=== PATIENT | male | born 1985 | race Caucasian/White ===

== ENCOUNTER 2019-10-23 10:53 | Emergency (ER) | payer OTHER, SELFPAY ==
[2019-10-23] VITALS (19 sets, daily range): BP systolic 97–126; BP diastolic 64–76; PULSE 60–85; RESP 6–20; TEMP 36.6; O2SAT 95–100
--- NOTE | ~2019-10-23 | XR_ITS ---
EXAMINATION: XR chest 2V EXAM DATE: 10/23/2019 11:32 INDICATION: Sharp chest pain during respiration. TECHNIQUE: Frontal and lateral projections of the chest obtained and reviewed. There is no prior lexx dy for comparison. FINDINGS: The lungs are clear. There are no pleural effusions. The cardiomediastinal silhouette is within normal limits. There is no pneumothorax suspected. The bones and soft tissues are unremarkab le. IMPRESSION: No acute cardiopulmonary findings. Reviewed, dictated and finalized at location B.
--- NOTE | 2019-10-23 11:03 | ECG_ITS ---
Measurements Intervals [place] Rate: 64 P: 76 SC: 129 QRS: 77 QRSD: 90 T: 66 QT: 382 QTc: 397 Interpretive Statements SINUS RHYTHM WITH SINUS ARRHYTHMIA BORDERLINE ECG Electronically Signed On 10-23-2019 11:55:51 CDT by Serjio Emerson D.O.
[2019-10-23 11:15] LABS: Basophils Absolute Auto 0.1 K/mm3 (0.0-0.1); Basophils Percent Auto 0.7 % (0.2-1.2); Eosinophils Absolute Auto 0.1 K/mm3 (0-0.3); Eosinophils Percent Auto 1.8 % (0-4.4); Hematocrit 36.7 % (42.0-52.0); Hemoglobin 12.9 g/dL (14.0-18.0); Immature Granulocyte Absolute 0.01 K/mm3 (0.00-0.031); Immature Granulocyte Percent A 0.1 % (0-0.5); Lymphocytes Absolute Auto 1.63 K/mm3 (0.9-3.2); Mean Corpuscular HGB Conc 35.1 g/dl (32-36); Mean Corpuscular Hemoglobin 30.1 pg (26-34); Mean Corpuscular Volume 85.5 fl (80-100); Mean Platelet Volume 9.3 fl (7.4-10.4); Monocytes Absolute Auto 0.6 K/mm3 (0.1-0.6); Monocytes Percent Auto 8.8 % (2.6-8.5); Neutrophils Absolute Auto 4.4 K/mm3 (1.3-6.7); Neutrophils Percent Auto 64.6 % (45.5-73.1); Platelet Count Result 182 k/mm3 (150-375); Red Blood Count 4.29 M/mm3 (4.6-6.20); White Blood Count 6.8 K/mm3 (4.5-10.0)
[2019-10-23 11:25] LABS: Prothrombin Time 12.4 Seconds (11.1-14.7)
[2019-10-23 11:27] LABS: Blood Urea Nitrogen 8 mg/dL (9-20); Calcium 9.2 mg/dL (8.4-10.2); Carbon Dioxide 25 mmol/L (22-30); Chloride 100 mmol/L (98-107); Estimated CRCL calculation 108 ml/min; Estimated Glomerular Filt Rate > 60; Glucose 106 mg/dL (75-110); Potassium 3.9 mmol/L (3.4-5.0); Sodium 135 mmol/L (137-145)
[2019-10-23 11:39] LABS: Troponin I < 0.012 ng/mL (0.000-0.034)
[2019-10-23 11:44] LABS: Erythrocyte Sedimentation Rate 22 mm/hr (0-20)
--- NOTE | 2019-10-23 12:11 | ED.GENADULT ---
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 Patient notes that these interventions did not help patient notes that the pain is persistent denies similar occurrence in the past URI symptoms injury or trauma. Related Data Home Medications Medication Instructions Recorded Confirmed No Home Medications 10/23/19 10/23/19 Allergies Allergy/AdvReac Type Severity Reaction Status Date / Time No Known Allergies Allergy Verified 10/23/19 11:07 Review of Systems Review of Systems: All systems reviewed & are unremarkable except as noted in HPI and below PMFSH Social History Social History (Updated 10/23/19 @ 12:12 by Thiago Castro PA-C) Smoking status: Never smoker Exam Narrative: Exam Narrative: GENERAL: Well-appearing, well-nourished, and in no acute distress. HEAD: Normocephalic, atraumatic. EYES: PERRLA and EOMI. ENT: Nares clear, no rhinorrhea or epistaxis. Mucous membranes moist. CHEST: Clear to auscultation. No respiratory distress. No wheezes rales or rhonchi HEART: Regular rate and rhythm. No murmur heard. Normal peripheral pulses. ABDOMEN: Soft, nontender, nondistended. EXTREMITIES: Normal range of motion. No edema. SKIN: Warm, dry, no rash. NEURO: No focal deficits. Alert and oriented x3. Cranial nerves II through XII grossly intact PSYCH: Normal mood and affect. 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 . Patient will be referred to cardiology for further evaluation and primary care Vital Signs Vital signs: Vital Signs Temperature 97.9 F 10/23/19 11:04 Pulse Rate 76 10/23/19 11:04 Respiratory Rate 20 10/23/19 11:04 Pulse Oximetry 100 10/23/19 11:04 Temperature 97.9 F 10/23/19 11:04 Pulse Rate 72 10/23/19 12:20 Respiratory Rate 14 10/23/19 12:20 Blood Pressure 126/76 10/23/19 12:20 Pulse Oximetry 99 10/23/19 12:20 Medical Decision Making Vital Signs Vital Signs: Vital Signs Temperature 97.9 F 10/23/19 11:04 Pulse Rate 76 10/23/19 11:04 Respiratory Rate 20 10/23/19 11:04 Pulse Oximetry 100 10/23/19 11:04 Temperature 97.9 F 10/23/19 11:04 Pulse Rate 72 10/23/19 12:20 Respiratory Rate 14 10/23/19 12:20 Blood Pressure 126/76 10/23/19 12:20 Pulse Oximetry 99 10/23/19 12:20 Lab Data Result diagrams: 10/23/19 11:08 10/23/19 11:08 Labs: Lab Results 10/23/19 10/23/19 10/23/19 Range/Units 11:07 11:08 11:08 WBC 6.8 (4.5-10.0) K/mm3 RBC 4.29 L (4.6-6.20) M/mm3 Hgb 12.9 L (14.0-18.0) g/dL Hct 36.7 L (42.0-52.0) % MCV 85.5 (80-100) fl MCH 30.1 (26-34) pg MCHC 35.1 (32-36) g/dl RDW 12.0 (11.5-14.5) % Plt Count 182 (150-375) k/mm3 MPV 9.3 (7.4-10.4) fl Immature Gran % (Auto) 0.1 (0-0.5) % Neut % (Auto) 64.6 (45.5-73.1) % Lymph % (Auto) 24.0 (18.3-44.2) % Ballard % (Auto) 8.8 H (2.6-8.5) % Eos % (Auto) 1.8 (0-4.4) % Baso % (Auto) 0.7 (0.2-1.2) % Lymph # (Auto) 1.63 (0.9-3.2) K/mm3 Ballard # (Auto) 0.6 (0.1-0.6) K/mm3 Eos # (Auto) 0.1 (0-0.3) K/mm3 Baso # (Auto) 0.1 (0.0-0.1) K/mm3 Abs Immat Gran (auto) 0.01 (0.00-0.031) K/mm3 Absolute Neuts (auto) 4.4 (1.3-6.7) K/mm3 Absolute Nucleated RBC 0.0
[2019-10-23] MEDS: KETOROLAC 30 MG/ML VIAL (*BKC) IV PUSH (12:18)
[2019-10-23] MEDS: SODIUM CHLORIDE 0.9% IV 1,000 ML 999 ML IV CONT (12:19)
[2019-10-23 12:29] LABS: D Dimer 0.27 ug/mL (<0.48)
[2019-10-23 13:15] LABS: CRP 0.8 mg/dL (<1.0)
[2019-10-23 14:37] LABS: Troponin I < 0.012 ng/mL (0.000-0.034)
[2019-10-23 14:56] LABS: Magnesium 1.7 mg/dL (1.6-2.3)
== END 2019-10-23 15:05 | disposition home or self-care (01) ==
PROVIDERS: Emergency Medicine Emergency Medical Services; Emergency Provider Emergency Medicine
DX: R07.9 Chest pain, unspecified (principal); R94.31 Abnormal electrocardiogram [ECG] [EKG]
CPT/HCPCS: 36415; 71046; 80048; 83735; 84484; 85025; 85380; 85610; 85652; 85730; 86140; 93005; 96361; 96374; 96375; 99284; J1885; J3360; J7030

== ENCOUNTER 2020-06-17 14:06 | Emergency (ER) | payer OTHER, SELFPAY ==
--- NOTE | 2020-06-17 14:16 | ED.MALEGU ---
HPI - Male Genitourinary General Chief complaint: Urogenital-Male Stated complaint: BURNING URINATION Time Seen by Provider: 06/17/20 14:16 Source: patient and RN notes reviewed History of Present Illness HPI Narrative: Patient is a 35-year-old male who presents the urgent care with complaints of burning with urination, suprapubic pressure and cloudy urine. Patient states that he noticed it on Monday. Denies of any low back pain, abdominal pain, nausea, vomiting, fever. Patient has not taken anything [id number] for his symptoms. States that him and his girlfriend are with each other 14/11 except for a 3-hour. Most recently . Patient is also suggesting he may need STD evaluation. Denies of any penile discharge, blood in the urine. No other acute complaints. No acute distress noted. Patient aware of the plan of care. Some parts of this dictation were generated by voice recognition software and may contain typographical and/or grammatical inaccuracies. Related Data Home Medications Medication Instructions Recorded Confirmed No Home Medications 10/23/19 10/23/19 Allergies Allergy/AdvReac Type Severity Reaction Status Date / Time No Known Allergies Allergy Verified 10/23/19 11:07 Review of Systems Review of Systems: Narrative: CONSTITUTIONAL: Denies fever, chills, or sweats. EYES: Denies visual changes, redness, or discharge. ENT: Denies rhinorrhea, congestion, sore throat, or otalgia. CARDIOVASCULAR: Denies chest pain, palpitations, or edema. RESPIRATORY: Denies cough or dyspnea. GASTROINTESTINAL: Denies abdominal pain, nausea, vomiting, or diarrhea. GENITOURINARY: Reports of dysuria, suprapubic pressure and cloudy urine SKIN: Denies rash or itching. MUSCULOSKELETAL: Denies back pain, joint pain, or myalgia. NEUROLOGIC: Denies headache, numbness, or weakness. All other systems reviewed are negative, except as documented in HPI. PMFSH Social History Social History (Updated 10/23/19 @ 12:12 by Thiago Castro PA-C) Smoking status: Never smoker Comments At the time of my signature, I reviewed and agree with the nursing past medical, surgical, social, and family history. There is no relevant family history pertinent to the patient complaint. Exam Narrative: Exam Narrative: GENERAL: This is a well-nourished, well-developed patient, in no apparent distress. HEAD: normocephalic, atraumatic. EYES: PERRL. Sclera clear/white. Vision is grossly intact. EARS: External ears normal NOSE: External nose normal with no obvious nasal discharge, nares without redness, no rhinorrhea. THROAT: Mucous membranes moist NECK: Neck supple GASTROINTESTINAL: Abdomen soft, non-tender, nondistended. SKIN: warm, intact with no suspicious lesions or rash, good texture and turgor. NEURO: awake, alert, and oriented to person, place and time. There were no obvious focal neurologic abnormalities. EXTREMITIES: No clubbing, cyanosis, or edema. BACK: Negative bilateral CVA tenderness Course Vital Signs Vital signs: Vital Signs Temperature 99.2 F 06/17/20 14:31 Pulse Rate 73 06/17/20 14:31 Respiratory Rate 16 06/17/20 14:31 Blood Pressure 113/66 06/17/20 14:31 Pulse Oximetry 100 06/17/20 14:31 Temperature 99.2 F 06/17/20 14:31 Pulse Rate 73 06/17/20 14:31 Respiratory Rate 16 06/17/20 14:31 Blood Pressure 113/66 06/17/20 14:31 Pulse Oximetry 100 06/17/20 14:31 Reviewed MDM - Male Genitourinary MDM Narrative Medical decision making narrative: Reviewed lab results with the patient. He is aware that urine analysis is not indicative of a urinary tract infection. Patient states that he would like to wait on antibiotics for any possible STD treatment. Patient is aware that we will send the urine for trichomonas, gonorrhea, and chlamydia. The test results typically take about 1 week and if you do not hear back from the facility by then, call the facility for results. Advised the patient to incr
[2020-06-17 14:31] VITALS: BP 113/66; PULSE 73; RESP 16; TEMP 37.3; O2SAT 100
== END 2020-06-17 14:37 | disposition home or self-care (01) ==
PROVIDERS: Emergency Provider Nurse Practitioner Family
DX: R30.0 Dysuria (principal)
CPT/HCPCS: 81003; 87491; 87591; 87661; 99213; G0463